=== PATIENT | female | born 1985 | race Two or more races ===

== ENCOUNTER 2019-11-03 09:40 | Emergency (ER) | payer MEDICARE, MEDICAID ==
[~2019-11-03] VITALS: Ht 162.6 cm; Wt 57.0 kg
[2019-11-03] MEDS ORDERED: SODIUM CHLORIDE 0.9% 1,000 ML IV ONE (10:23)
[2019-11-03] MEDS ORDERED: HYDROCODONE/ACETAMINOPHEN 5/325MG TABLET PO ONE (10:30)
[2019-11-03] MEDS ORDERED: LIDOCAINE 1%/EPI 1:100,000 10 ML VIAL IJ ONE (10:30)
[2019-11-03] MEDS ORDERED: BACITRACIN ZINC OINT UDPKT TOP ONE (10:30)
[2019-11-03] MEDS ORDERED: SULFAMETHOXAZOLE/TRIMETHOPRIM 400/80MG TAB PO ONE (10:30)
[2019-11-03] MEDS ORDERED: IBUPROFEN 600MG TABLET PO ONE (10:30)
[2019-11-03] MEDS ORDERED: CEPHALEXIN 250MG CAPSULE PO ONE (10:30)
[2019-11-03] MEDS ORDERED: LORAZEPAM 1MG TABLET PO ONE (11:45)
[2019-11-03] MEDS ORDERED: LIDOCAINE/PRILOCAINE CREAM 5 GM TUBE TOP ONE (11:45)
[2019-11-03 13:30] VITALS: BP 114/63
== END 2019-11-03 16:00 | disposition home or self-care (01) ==
LOC: ER 09:40
DX: L02.31 Cutaneous abscess of buttock (principal); I49.9 Cardiac arrhythmia, unspecified; Z98.890 Other specified postprocedural states
CPT/HCPCS: 10060; 93005; 96360; 99284; J3490; J7030

== ENCOUNTER 2019-11-04 12:24 | Emergency (ER) | payer MEDICARE, MEDICAID ==
[~2019-11-04] VITALS: Ht 172.7 cm; Wt 59.0 kg
[2019-11-04] MEDS ORDERED: SULFAMETHOXAZOLE/TRIMETHOPRIM 800/160MG TABLET PO ONE (13:00)
[2019-11-04] MEDS ORDERED: CEPHALEXIN 250MG CAPSULE PO ONE (13:00)
[2019-11-04] MEDS ORDERED: IBUPROFEN 600MG TABLET PO ONE (13:00)
[2019-11-04 13:13] VITALS: BP 111/59
== END 2019-11-04 14:20 | disposition home or self-care (01) ==
LOC: ER 12:49
DX: L03.317 Cellulitis of buttock (principal)
CPT/HCPCS: 99284

== ENCOUNTER 2019-11-08 08:47 | Emergency (ER) | payer MEDICARE, MEDICAID ==
[~2019-11-08] VITALS: Ht 162.6 cm; Wt 60.0 kg
[2019-11-08 08:50] VITALS: BP 113/74
== END 2019-11-08 09:54 | disposition home or self-care (01) ==
LOC: ER 08:47
DX: J02.9 Acute pharyngitis, unspecified (principal); Z87.19 Personal history of other diseases of the digestive system; Z48.02 Encounter for removal of sutures
CPT/HCPCS: 99282